=== PATIENT | male | born 1965 | race Caucasian/White ===

== ENCOUNTER 2017-07-25 15:50 | Emergency (ER) | payer MEDICARE, OTHER ==
[~2017-07-25] VITALS: Ht 177.8 cm; Wt 147.4 kg
[~2017-07-25 15:50] MED LIST: ACETAMINOPHEN325 M1 PO; ACID CONTROLLER20 MG PO; ADULT LOW DOSE81 MG PO; AMBIEN10 MG; AMITIZA8 MCG PO; CARAFATE1 GM PO; CLARITIN10 M2 PO; CORRECTOL5 MG PO; FEOSOL325 MG PO; FIBER TABS625 MG PO; FLUVOXAMINE MA100 M1 PO; FLUVOXAMINE MA100 MG PO; GABAPENTIN300 MG; GABAPENTIN400 MG PO; GLUCOTROL5 MG PO; HYDROCHLOROTHIA50 MG PO; L-METHYLFOLATE15 MG PO; LAMICTAL200 MG PO; LAMOTRIGINE200 MG PO; LATUDA60 MG PO; LISINOPRIL40 MG PO; METFORMIN HCL500 M2 PO; NAPROXEN250 MG PO; NORCO 5-325 TA1 EACH PO; OMEPRAZOLE20 MG PO; POTASSIUM CHLO10 ME1 PO; POTASSIUM CHLO20 ME1; PROTONIX40 MG PO; SIMVASTATIN20 MG; SIMVASTATIN40 MG PO; TELMISARTAN-HC1 EACH; ZOLPIDEM TARTRA10 MG PO
--- OUTSIDE RECORDS SUMMARY | 2017-07-25 16:15 | XMS ---
Demographics + + + | Address | [address] | | | [place] [address] | + + + | Preferred Language | Unknown | + + + | Marital Status | Unknown | + + + | Jain Affiliation | Unknown | + + + | Race | Unknown | + + + | Ethnic Group | Unknown | + + + Author + + + | Author | [facility] | + + + | Organization | [facility] | + + + | Address | [address] | | | [place] [address] | + + + | Phone | | + + + Care Team Providers + + + + | Care Forest Landscape Ecology Professor Name | Role | Phone | + + + + Unavailable | Unavailable | + + + + PROBLEMS +---------+ + + +--------+ + + | Type | Condition | ICD9-CM | [id number] | Onset | Condition | SNOMED | | | | Code | Code | Dates | Status | Code | +---------+ + + +--------+ + + | Problem | Diffuse | M48.10 | | | Active | [id number] | | | idiopathic | | | | | | | | skeletal | | | | | | | | hyperostos | | | | | | | | is | | | | | | +---------+ + + +--------+ + + | Problem | Ankylosing | M45.9 | | | Active | 3981447 | | | | | | | | | | | spondyliti | | | | | | | | s | | | | | | +---------+ + + +--------+ + + | Problem | Unspecifie | | S83.206A | | Active | | | | d tear of | | | | | | | | unspecifie | | | | | | | | d | | | | | | | | meniscus, | | | | | | | | current | | | | | | | | injury, | | | | | | | | right | | | | | | | | knee, | | | | | | | | initial | | | | | | | | encounter | | | | | | +---------+ + + +--------+ + + | Problem | Moderate | | F71 | | Active | 14765876 | | | intellectu | | | | | | | | al | | | | | | | | disabiliti | | | | | | | | es | | | | | | +---------+ + + +--------+ + + | Problem | Morbid | | E66.01 | | Active | 441483632 | | | obesity | | | | | | | | with BMI | | | | | | | | of | | | | | | | | 45.0-49.9, | | | | | | | | adult | | | | | | +---------+ + + +--------+ + + | Problem | Irritable | | K58.1 | | Active | | | | bowel | | | | | | | | syndrome | | | | | | | | with | | | | | | | | constipati | | | | | | | | on | | | | | | +---------+ + + +--------+ + + | Problem | Congestive | I50.9 | | | Active | 30978463 | | | heart | | | | | | | | failure | | | | | | +---------+ + + +--------+ + + | Problem | Bone spur | M77.51 | | | Active | 041837257 | | | of right | | | | | | | | ankle | | | | | | +---------+ + + +--------+ + + | Problem | Decreased | H91.90 | | | Active | 258693896 | | | hearing | | | | | | +---------+ + + +--------+ + + | Problem | Cellulitis | L03.115 | | | Active | 3062357701 | | | of right | | | | | 4856773 | | | foot | | | | | | +---------+ + + +--------+ + + | Problem | Urge | | N39.41 | | Active | 09917451 | | | incontinen | | | | | | | | ce | | | | | | +---------+ + + +--------+ + + | Problem | Elevated | R74.8 | | | Active | 193938482 | | | alkaline | | | | | | | | phosphatas | | | | | | | | e level | | | | | | +---------+ + + +--------+ + + | Problem | Hyperlipid | | E78.5 | | Active | 48423864 | | | emia | | | | | | +---------+ + + +--------+ + + | Problem | Essential | | I10 | | Active | 75062064 | | | (primary) | | | | | | | | hypertensi | | | | | | | | on | | | | | | +---------+ + + +--------+ + + | Problem | GERD | | K21.9 | | Active | 085418546 | | | (gastroeso | | | | | | | | phageal | | | | | | | | reflux | | | | | | | | disease) | | | | | | +---------+ + + +--------+ + + | Problem | Screening | Z12.5 | | | Active | 330564005 | | | for | | | | | | | | prostate | | | | | | | | cancer | | | | | | +---------+ + + +--------+ + + | Problem | Status | Z93.0 | | | Active | 341023841 | | | post | | | | | | | | emergency | | | | | | | | tracheotom | | | | | | | | y for | | | | | | | | assistance | | | | | | | | in | | | | | | | | breathing | | | | | | +---------+ + + +--------+ + + | Problem | HTN | | I10 | | Active | 13413723 | | | (hypertens | | | | | | | | ion) | | | | | | +---------+ + + +--------+ + + | Problem | Chronic | | N18.3 | | Active | 156891837 | | | kidney | | | | | | | | disease, | | | | | | | | stage 3 | | | | | | +---------+ + + +--------+ + + | Problem | Obstructiv | G47.33 | | | Active | 03512369 | | | e sleep | | | | | | | | apnea | | | | | | +---------+ + + +--------+ + + | Problem | Microalbum | R80.9 | | | Active | 650038312 | | | inuria | | | | | | +---------+ + + +--------+ + + | Problem | Bipolar | F31.9 | | | Active | 92328501 | | | disorder | | | | | | +---------+ + + +--------+ + + | Problem | Type 2 | E11.9 | | | Active | 30715646 | | | diabetes | | | | | | | | mellitus | | | | | | +---------+ + + +--------+ + + | Problem | Anxiety | F41.9 | | | Active | 447586444 | | | disorder | | | | | | +---------+ + + +--------+ + + | Problem | Conduct | | F91.9 | | Active | 290170827 | | | disorder, | | | | | | | | unspecifie | | | | | | | | d | | | | | | +---------+ + + +--------+ + + | Problem | Anemia, | D50.9 | | | Active | 11392233 | | | iron | | | | | | | | deficiency | | | | | | +---------+ + + +--------+ + + | Problem | Psychotic | | F06.2 | | Active | | | | disorder | | | | | | | | with | | | | | | | | delusions | | | | | | | | due to | | | | | | | | known | | | | | | | | physiologi | | | | | | | | spike | | | | | | | | condition | | | | | | +---------+ + + +--------+ + + ALLERGIES Unknown Allergies SOCIAL HISTORY No smoking Hx information available PLAN OF CARE + +---------+ | Activity | Details | + +---------+ +---+ | | +---+ + + + | Follow Up | 4 Weeks Reason:null | + + + VITAL SIGNS MEDICATIONS + + + + + + + +--------+ | Medicati | Instruct | Dosage | Frequenc | Start | End Date | Duration | Status | | on | ions | | y | Date | | | | + + + + + + + +--------+ | Lisinopr | Orally | 1 tablet | 24h | | | | Active | | il 40 MG | Once a | | | | | | | | | day | | | | | | | + + + + + + + +--------+ | Simvasta | Orally | 1 tablet | 24h | | | | Active | | tin 40 | Once a | in the | | | | | | | MG | day | evening | | | | | | + + + + + + + +--------+ | Ditropan | Orally | 1 tablet | 24h | 20 May, | 17 Nov, | 30 | Active | | XL 5 MG | Once a | | | 2017 | 2017 | day(s) | | | | day | | | | | | | + + + + + + + +--------+ | Famotidi | Orally | 1 tablet | 24h | 21 Sep, | | | Active | | ne 20 mg | Once a | at | | 2015 | | | | | | day | bedtime | | | | | | + + + + + + + +--------+ | Tamsulos | p.o. | take one | 24h | | 8 Feb, | 30 days | Active | | in HCl | Once a | capsule | | | 2017 | | | | 0.4 MG | day | by | | | | | | | | | mouth | | | | | | | | | every | | | | | | | | | day | | | | | | + + + + + + + +--------+ | acetamet | orally | 2 | | | | | Active | | aphine | prn | tablets | | | | | | | 325 mg | | | | | | | | + + + + + + + +--------+ | Hydrochl | Orally | 1 tablet | 24h | | | | Active | | orothiaz | Once a | | | | | | | | jeff 50 | day | | | | | | | | mg | | | | | | | | + + + + + + + +--------+ | Flomax | Orally | 2 | | 03 Jun, | 30 Nov, | 30 | Active | | 0.4 MG | Once a | capsules | | 2016 | 2018 | day(s) | | | | day at | | | | | | | | | bedtime | | | | | | | + + + + + + + +--------+ | Norvasc | Orally | 1 tablet | 24h | 13 Kushal, | | 30 | Active | | 5 MG | Once a | | | 2017 | | day(s) | | | | day | | | | | | | + + + + + + + +--------+ | Loratadi | Orally | 1 tablet | | | | | Active | | ne 10 mg | Once a | | | | | | | | | day as | | | | | | | | | needed | | | | | | | | | for | | | | | | | | | allergie | | | | | | | | | s | | | | | | | + + + + + + + +--------+ | Systane | Ophthalm | 1 drop | | | | | Active | | 0.4-0.3 | ic 6 | into | | | | | | | % | times a | affected | | | | | | | | day as | eye | | | | | | | | needed | | | | | | | | | for dry | | | | | | | | | eyes | | | | | | | + + + + + + + +--------+ | Latuda | Orally | 1 tablet | 24h | | | | Active | | 60 MG | Once a | with | | | | | | | | day | food | | | | | | + + + + + + + +--------+ | Aspirin | Orally | 1 tablet | 24h | | | | Active | | 81 MG | Once a | | | | | | | | | day | | | | | | | + + + + + + + +--------+ | Nasonex | Nasally | 2 sprays | 24h | 27 March, | | 30 | Active | | 50 | Once a | in each | | 2017 | | day(s) | | | MCG/ACT | day | nostril | | | | | | + + + + + + + +--------+ | Meloxica | Orally | 1 tablet | 24h | | | | Active | | m 15 MG | Once a | | | | | | | | | day | | | | | | | + + + + + + + +--------+ | Miralax | orally | 1 packet | | 25 Patrick, | | | Active | | (polyeth | Once a | mixed 8 | | 2016 | | | | | ylene | day - | oz of | | | | | | | glycol | For | water or | | | | | | | 3350) | Constipa | juice | | | | | | | 17gram | tion | | | | | | | + + + + + + + +--------+ | Lamotrig | Orally | 1 tablet | 12h | | | | Active | | ine 200 | Twice a | | | | | | | | MG | day | | | | | | | + + + + + + + +--------+ | Glucotro | Orally | 1 tablet | 24h | | | | Active | | l 5 MG | Once a | | | | | | | | | day | | | | | | | + + + + + + + +--------+ | OneTouch | in vitro | as | 12h | 23 Dec, | | 30 | Active | | Delica | bid | directed | | 2014 | | day(s) | | | Lancing | | | | | | | | | Dev 10 | | | | | | | | | mg | | | | | | | | + + + + + + + +--------+ | Potassiu | Orally | 2 tablet | 12h | | | | Active | | m | Twice a | | | | | | | | Chloride | day | | | | | | | | ER 10 | | | | | | | | | MEQ | | | | | | | | + + + + + + + +--------+ | Fiber | Orally | 1 tablet | | | | | Active | | Laxative | Once a | | | | | | | | 625 MG | day as | | | | | | | | | needed | | | | | | | | | for | | | | | | | | | constipa | | | | | | | | | tion | | | | | | | + + + + + + + +--------+ | MetFORMI | Orally | 2 tablet | 24h | | | 30 | Active | | N HCl ER | Once a | with | | | | day(s) | | | 500 mg | day | evening | | | | | | | | | meal | | | | | | + + + + + + + +--------+ | One | In Vitro | as | 12h | 23 Dec, | | 30 | Active | | Touch/On | bid | directed | | 2014 | | day(s) | | | e Touch | | | | | | | | | II | | | | | | | | | Starter | | | | | | | | | 10 mg | | | | | | | | + + + + + + + +--------+ | Zolpidem | Orally | 1 tablet | | | | | Active | | | Once a | | | | | | | | Tartrate | day at | | | | | | | | 5 MG | bedtime | | | | | | | | | as | | | | | | | | | needed | | | | | | | | | for | | | | | | | | | sleeples | | | | | | | | | sness | | | | | | | + + + + + + + +--------+ | Fluvoxam | Orally | 3 tablet | 24h | | | | Active | | ine | Once a | in | | | | | | | Maleate | day | morning | | | | | | | 100 MG | | | | | | | | + + + + + + + +--------+ | Ferrous | Orally | 1 tablet | 24h | Jun, | | | Active | | Sulfate | Once a | | | 2015 | | | | | 325 (65 | day | | | | | | | | Fe) MG | | | | | | | | + + + + + + + +--------+ RESULTS No Results PROCEDURES + + + + + | Procedure | Date Ordered | Related Diagnosis | Body Site | + + + + + | CYSTOSCOPY | Jun 28, 2017 | | | + + + + + IMMUNIZATIONS No Known Immunizations"
--- OUTSIDE RECORDS SUMMARY | 2017-07-25 16:15 | XMS ---
Demographics + + + | Address | [address] | | | [place] [address] | + + + | Preferred Language | Unknown | + + + | Marital Status | Unknown | + + + | Jewish Affiliation | Unknown | + + + | Race | Unknown | + + + | Ethnic Group | Unknown | + + + Author + + + | Author | [facility] | + + + | Organization | [facility] | + + + | Address | [address] | | | [place] [address] | + + + | Phone | | + + + Care Team Providers + + + + | Care Volleyball Referee Name | Role | Phone | + + + + Unavailable | Unavailable | + + + + PROBLEMS +---------+ + + +--------+ + + | Type | Condition | ICD9-CM | [id number] | Onset | Condition | SNOMED | | | | Code | Code | Dates | Status | Code | +---------+ + + +--------+ + + | Problem | Diffuse | M48.10 | | | Active | 94359943 | | | idiopathic | | | | | | | | skeletal | | | | | | | | hyperostos | | | | | | | | is | | | | | | +---------+ + + +--------+ + + | Problem | Ankylosing | M45.9 | | | Active | 4525916 | | | | | | | [...] | | F71 | | Active | 52203508 | | | intellectu | | | | | | | | al | | | | | | | | disabiliti | | | | | | | | es | | | | | | +---------+ + + +--------+ + + | Problem | Morbid | | E66.01 | | Active | 614528108 | | | obesity | | | [...] | I50.9 | | | Active | 20148975 | | | heart | | | | | | | | failure | | | | | | +---------+ + + +--------+ + + | Problem | Bone spur | M77.51 | | | Active | 497396451 | | | of right | | | | | | | | ankle | | | | | | +---------+ + + +--------+ + + | Problem | Decreased | H91.90 | | | Active | 856151423 | | | hearing | | | | | | +---------+ + + +--------+ + + | Problem | Cellulitis | L03.115 | | | Active | 6768878279 | | | of right | | | | | 6884992 | | | foot | | | | | | +---------+ + + +--------+ + + | Problem | Urge | | N39.41 | | Active | 56397055 | | | incontinen | | | | | | | | ce | | | | | | +---------+ + + +--------+ + + | Problem | Elevated | R74.8 | | | Active | 338271984 | | | alkaline | | | | | | | | phosphatas | | | | | | | | e level | | | | | | +---------+ + + +--------+ + + | Problem | Hyperlipid | | E78.5 | | Active | 62947385 | | | emia | | | | | | +---------+ + + +--------+ + + | Problem | Essential | | I10 | | Active | 28330907 | | | (primary) | | | | | | | | hypertensi | | | | | | | | on | | | | | | +---------+ + + +--------+ + + | Problem | GERD | | K21.9 | | Active | 626229175 | | | (gastroeso | | | | | | | | phageal | | | | | | | | reflux | | | | | | | | disease) | | | | | | +---------+ + + +--------+ + + | Problem | Screening | Z12.5 | | | Active | 844420358 | | | for | | | | | | | | prostate | | | | | | | | cancer | | | | | | +---------+ + + +--------+ + + | Problem | Status | Z93.0 | | | Active | 401786498 | | | post | | | [...] | | I10 | | Active | 09333905 | | | (hypertens | | | | | | | | ion) | | | | | | +---------+ + + +--------+ + + | Problem | Chronic | | N18.3 | | Active | 779953308 | | | kidney | | | | | | | | disease, | | | | | | | | stage 3 | | | | | | +---------+ + + +--------+ + + | Problem | Obstructiv | G47.33 | | | Active | 01985400 | | | e sleep | | | | | | | | apnea | | | | | | +---------+ + + +--------+ + + | Problem | Microalbum | R80.9 | | | Active | 203926765 | | | inuria | | | | | | +---------+ + + +--------+ + + | Problem | Bipolar | F31.9 | | | Active | 41729897 | | | disorder | | | | | | +---------+ + + +--------+ + + | Problem | Type 2 | E11.9 | | | Active | 89394002 | | | diabetes | | | | | | | | mellitus | | | | | | +---------+ + + +--------+ + + | Problem | Anxiety | F41.9 | | | Active | 180839696 | | | disorder | | | | | | +---------+ + + +--------+ + + | Problem | Conduct | | F91.9 | | Active | 853861151 | | | disorder, | | | | | | | | unspecifie | | | | | | | | d | | | | | | +---------+ + + +--------+ + + | Problem | Anemia, | D50.9 | | | Active | 22352911 | | | iron | | | [...] +---------+ + + +--------+ + + ALLERGIES + + + + +---------+ | Substance | Reaction | Event Type | Date | Status | + + + + +---------+ | N.K.D.A. | Unknown | Non Drug | 20 May, 2017 | Unknown | | | | Allergy | | | + + + + +---------+ SOCIAL HISTORY No smoking Hx information available PLAN OF CARE + +---------+ | Activity | Details | + +---------+ +---+ | | +---+ + + + | Follow Up | 1 Week Reason:null | + + + | Pending Test | Urinalysis, Dip (IH) | + + + | Future/Pending Procedure | Bladder Scan | + + + VITAL SIGNS + + + + | Height | 70 in | 2017-06-14 | + + + + | Weight | 328.0 lbs | 2017-06-14 | + + + + | BMI | 47.06 kg/m2 | 2017-06-14 | + + + + | Temperature | 98.6 degrees Fahrenheit | 2017-06-14 | + + + + | Heart Rate | 75 /min | 2017-06-14 | + + + + | Blood pressure systolic | 133 mm Hg | 2017-06-14 | + + + + | Blood pressure diastolic | 72 mm Hg | 2017-06-14 | + + + + MEDICATIONS + + + + + + [...] Sulfate | Once a | | | 2016 | | | | | 325 (65 [...] Nasally | 2 sprays | 24h | 02 March, | | 30 | Active | [...] | 1 tablet | 24h | 13 May, | | 30 | Active | | 5 MG | Once a | | | 2016 | | day(s) | | | | [...] orally | 1 packet | | 25 Nov, | | | Active | | (polyeth [...] Delica | bid | directed | | 2013 | | day(s) | | | Lancing [...] Touch/On | bid | directed | | 2013 | | day(s) | | | e [...] Once a | capsule | | | 2018 | | | | 0.4 MG | [...] | 1 tablet | 24h | 20 Kushal, | 17 Nov, | 30 | Active [...] | 1 tablet | 24h | 21 Nov, | | | Active | | ne 20 mg | Once a | at | | 2016 | | | | | | day | bedtime | | | | | | + + + + + + + +--------+ RESULTS No Results PROCEDURES + + + + + | Procedure | Date Ordered | Related Diagnosis | Body Site | + + + + + | US URINE CAPACITY | June 14, 2017 | | | | MEASURE | | | | + + + + + | LAB URINALYSIS (DIP | June 14, 2017 | | | | STICK ONLY | | | | + + + + + | Office Visit, Est | June 14, 2017 | | | | Pt., Level 4 | | | | + + + + + IMMUNIZATIONS No Known Immunizations"
--- OUTSIDE RECORDS SUMMARY | 2017-07-25 16:15 | XMS ---
Demographics + + + | Address | [address] | | | [place] [address] | + + + | Preferred Language | Unknown | + + + | Marital Status | Unknown | + + + | Anglican Affiliation | Unknown | + + + | Race | Unknown | + + + | Ethnic Group | Unknown | + + + Author + + + | Author | [facility] | + + + | Organization | [facility] | + + + | Address | [address] | | | [place] [address] | + + + | Phone | | + + + Care Team Providers + + + + | Care Educational Technologist Name | Role | Phone | + + + + Unavailable | Unavailable | + + + + PROBLEMS +---------+ + + +--------+ + + | Type | Condition | ICD9-CM | [id number] | Onset | Condition | SNOMED | | | | Code | Code | Dates | Status | Code | +---------+ + + +--------+ + + | Problem | Diffuse | M48.10 | | | Active | [id number] | | | idiopathic | | | | | | | | skeletal | | | | | | | | hyperostos | | | | | | | | is | | | | | | +---------+ + + +--------+ + + | Problem | Ankylosing | M45.9 | | | Active | 1614658 | | | | | | | [...] | | F71 | | Active | 94469958 | | | intellectu | | | | | | | | al | | | | | | | | disabiliti | | | | | | | | es | | | | | | +---------+ + + +--------+ + + | Problem | Morbid | | E66.01 | | Active | 112418330 | | | obesity | | | [...] | | K58.1 | | Active | 649036969 | | | bowel | | | | | | | | syndrome | | | | | | | | with | | | | | | | | constipati | | | | | | | | on | | | | | | +---------+ + + +--------+ + + | Problem | Congestive | I50.9 | | | Active | 06778304 | | | heart | | | | | | | | failure | | | | | | +---------+ + + +--------+ + + | Problem | Bone spur | M77.51 | | | Active | 529214245 | | | of right | | | | | | | | ankle | | | | | | +---------+ + + +--------+ + + | Problem | Decreased | H91.90 | | | Active | 690466951 | | | hearing | | | | | | +---------+ + + +--------+ + + | Problem | Cellulitis | L03.115 | | | Active | 4423075219 | | | of right | | | | | 3054949 | | | foot | | | | | | +---------+ + + +--------+ + + | Problem | Urge | | N39.41 | | Active | 47340177 | | | incontinen | | | | | | | | ce | | | | | | +---------+ + + +--------+ + + | Problem | Elevated | R74.8 | | | Active | 383097939 | | | alkaline | | | | | | | | phosphatas | | | | | | | | e level | | | | | | +---------+ + + +--------+ + + | Problem | Hyperlipid | | E78.5 | | Active | 53508218 | | | emia | | | | | | +---------+ + + +--------+ + + | Problem | Essential | | I10 | | Active | 93662634 | | | (primary) | | | | | | | | hypertensi | | | | | | | | on | | | | | | +---------+ + + +--------+ + + | Problem | GERD | | K21.9 | | Active | 739398272 | | | (gastroeso | | | | | | | | phageal | | | | | | | | reflux | | | | | | | | disease) | | | | | | +---------+ + + +--------+ + + | Problem | Screening | Z12.5 | | | Active | 748382669 | | | for | | | | | | | | prostate | | | | | | | | cancer | | | | | | +---------+ + + +--------+ + + | Problem | Status | Z93.0 | | | Active | 585186622 | | | post | | | [...] | | I10 | | Active | 03439284 | | | (hypertens | | | | | | | | ion) | | | | | | +---------+ + + +--------+ + + | Problem | Chronic | | N18.3 | | Active | 011993979 | | | kidney | | | | | | | | disease, | | | | | | | | stage 3 | | | | | | +---------+ + + +--------+ + + | Problem | Obstructiv | G47.33 | | | Active | 43932473 | | | e sleep | | | | | | | | apnea | | | | | | +---------+ + + +--------+ + + | Problem | Microalbum | R80.9 | | | Active | 085984063 | | | inuria | | | | | | +---------+ + + +--------+ + + | Problem | Bipolar | F31.9 | | | Active | 92904626 | | | disorder | | | | | | +---------+ + + +--------+ + + | Problem | Type 2 | E11.9 | | | Active | 43195060 | | | diabetes | | | | | | | | mellitus | | | | | | +---------+ + + +--------+ + + | Problem | Anxiety | F41.9 | | | Active | 878741352 | | | disorder | | | | | | +---------+ + + +--------+ + + | Problem | Conduct | | F91.9 | | Active | 839048780 | | | disorder, | | | | | | | | unspecifie | | | | | | | | d | | | | | | +---------+ + + +--------+ + + | Problem | Anemia, | D50.9 | | | Active | 79470311 | | | iron | | | [...] smoking Hx information available PLAN OF CARE VITAL SIGNS MEDICATIONS Unknown Medications RESULTS No Results PROCEDURES No Known procedures IMMUNIZATIONS No Known Immunizations"
--- OUTSIDE RECORDS SUMMARY | 2017-07-25 16:15 | XMS ---
Demographics + + + | Address | [address] | | | [place] [address] | + + + | Preferred Language | Unknown | + + + | Marital Status | Unknown | + + + | Rastafarian Affiliation | Unknown | + + + | Race | Unknown | + + + | Ethnic Group | Unknown | + + + Author + + + | Author | [facility] | + + + | Organization | [facility] | + + + | Address | [address] | | | [place] [address] | + + + | Phone | | + + + Care Team Providers + + + + | Care Investigations Chief Name | Role | Phone | + + + + Unavailable | Unavailable | + + + + PROBLEMS +---------+ + + +--------+ + + | Type | Condition | ICD9-CM | [id number] | Onset | Condition | SNOMED | | | | Code | Code | Dates | Status | Code | +---------+ + + +--------+ + + | Problem | Diffuse | M48.10 | | | Active | [id number] | | | idiopathic | | | | | | | | skeletal | | | | | | | | hyperostos | | | | | | | | is | | | | | | +---------+ + + +--------+ + + | Problem | Ankylosing | M45.9 | | | Active | 2389987 | | | | | | | [...] | | F71 | | Active | 33479904 | | | intellectu | | | | | | | | al | | | | | | | | disabiliti | | | | | | | | es | | | | | | +---------+ + + +--------+ + + | Problem | Morbid | | E66.01 | | Active | 224494958 | | | obesity | | | [...] | | K58.1 | | Active | 972101980 | | | bowel | | | | | | | | syndrome | | | | | | | | with | | | | | | | | constipati | | | | | | | | on | | | | | | +---------+ + + +--------+ + + | Problem | Congestive | I50.9 | | | Active | 83960016 | | | heart | | | | | | | | failure | | | | | | +---------+ + + +--------+ + + | Problem | Bone spur | M77.51 | | | Active | 292914712 | | | of right | | | | | | | | ankle | | | | | | +---------+ + + +--------+ + + | Problem | Decreased | H91.90 | | | Active | 059153014 | | | hearing | | | | | | +---------+ + + +--------+ + + | Problem | Cellulitis | L03.115 | | | Active | 5330479218 | | | of right | | | | | 1843211 | | | foot | | | | | | +---------+ + + +--------+ + + | Problem | Urge | | N39.41 | | Active | 24961150 | | | incontinen | | | | | | | | ce | | | | | | +---------+ + + +--------+ + + | Problem | Elevated | R74.8 | | | Active | 208449118 | | | alkaline | | | | | | | | phosphatas | | | | | | | | e level | | | | | | +---------+ + + +--------+ + + | Problem | Hyperlipid | | E78.5 | | Active | 67090803 | | | emia | | | | | | +---------+ + + +--------+ + + | Problem | Essential | | I10 | | Active | 25703850 | | | (primary) | | | | | | | | hypertensi | | | | | | | | on | | | | | | +---------+ + + +--------+ + + | Problem | GERD | | K21.9 | | Active | 843536442 | | | (gastroeso | | | | | | | | phageal | | | | | | | | reflux | | | | | | | | disease) | | | | | | +---------+ + + +--------+ + + | Problem | Screening | Z12.5 | | | Active | 632370745 | | | for | | | | | | | | prostate | | | | | | | | cancer | | | | | | +---------+ + + +--------+ + + | Problem | Status | Z93.0 | | | Active | 697555919 | | | post | | | [...] | | I10 | | Active | 01190542 | | | (hypertens | | | | | | | | ion) | | | | | | +---------+ + + +--------+ + + | Problem | Chronic | | N18.3 | | Active | 837802642 | | | kidney | | | | | | | | disease, | | | | | | | | stage 3 | | | | | | +---------+ + + +--------+ + + | Problem | Obstructiv | G47.33 | | | Active | 82141287 | | | e sleep | | | | | | | | apnea | | | | | | +---------+ + + +--------+ + + | Problem | Microalbum | R80.9 | | | Active | 657237836 | | | inuria | | | | | | +---------+ + + +--------+ + + | Problem | Bipolar | F31.9 | | | Active | 78111613 | | | disorder | | | | | | +---------+ + + +--------+ + + | Problem | Type 2 | E11.9 | | | Active | 85068937 | | | diabetes | | | | | | | | mellitus | | | | | | +---------+ + + +--------+ + + | Problem | Anxiety | F41.9 | | | Active | 602364884 | | | disorder | | | | | | +---------+ + + +--------+ + + | Problem | Conduct | | F91.9 | | Active | 979014664 | | | disorder, | | | | | | | | unspecifie | | | | | | | | d | | | | | | +---------+ + + +--------+ + + | Problem | Anemia, | D50.9 | | | Active | 84928612 | | | iron | | | [...] take one | 24h | | 8 Fe, | 30 days | Active | | [...] | orally | 1 packet | | Nov, | | | Active | | (polyeth | Once a | mixed 8 | | 2017 | | | | | ylene | [...]
--- OUTSIDE RECORDS SUMMARY | 2017-07-25 16:15 | XMS ---
Demographics + + + | Address | [address] | | | [place] [address] | + + + | Preferred Language | Unknown | + + + | Marital Status | Unknown | + + + | Pentecostal Affiliation | Unknown | + + + | Race | Unknown | + + + | Ethnic Group | Unknown | + + + Author + + + | Author | [facility] | + + + | Organization | [facility] | + + + | Address | [address] | | | [place] [address] | + + + | Phone | | + + + Care Team Providers + + + + | Care Manager Data Warehousing Name | Role | Phone | + + + + Unavailable | Unavailable | + + + + PROBLEMS +---------+ + + +--------+ + + | Type | Condition | ICD9-CM | [id number] | Onset | Condition | SNOMED | | | | Code | Code | Dates | Status | Code | +---------+ + + +--------+ + + | Problem | Diffuse | M48.10 | | | Active | 93228363 | | | idiopathic | | | | | | | | skeletal | | | | | | | | hyperostos | | | | | | | | is | | | | | | +---------+ + + +--------+ + + | Problem | Ankylosing | M45.9 | | | Active | 3649740 | | | | | | | [...] | | F71 | | Active | 61424408 | | | intellectu | | | | | | | | al | | | | | | | | disabiliti | | | | | | | | es | | | | | | +---------+ + + +--------+ + + | Problem | Morbid | | E66.01 | | Active | 241136235 | | | obesity | | | [...] | I50.9 | | | Active | 77296149 | | | heart | | | | | | | | failure | | | | | | +---------+ + + +--------+ + + | Problem | Bone spur | M77.51 | | | Active | 870861859 | | | of right | | | | | | | | ankle | | | | | | +---------+ + + +--------+ + + | Problem | Decreased | H91.90 | | | Active | 244540649 | | | hearing | | | | | | +---------+ + + +--------+ + + | Problem | Cellulitis | L03.115 | | | Active | 4191064941 | | | of right | | | | | 3232791 | | | foot | | | | | | +---------+ + + +--------+ + + | Problem | Urge | | N39.41 | | Active | 02136947 | | | incontinen | | | | | | | | ce | | | | | | +---------+ + + +--------+ + + | Problem | Elevated | R74.8 | | | Active | 750235691 | | | alkaline | | | | | | | | phosphatas | | | | | | | | e level | | | | | | +---------+ + + +--------+ + + | Problem | Hyperlipid | | E78.5 | | Active | 83431557 | | | emia | | | | | | +---------+ + + +--------+ + + | Problem | Essential | | I10 | | Active | 55190064 | | | (primary) | | | | | | | | hypertensi | | | | | | | | on | | | | | | +---------+ + + +--------+ + + | Problem | GERD | | K21.9 | | Active | 958457836 | | | (gastroeso | | | | | | | | phageal | | | | | | | | reflux | | | | | | | | disease) | | | | | | +---------+ + + +--------+ + + | Problem | Screening | Z12.5 | | | Active | 940636717 | | | for | | | | | | | | prostate | | | | | | | | cancer | | | | | | +---------+ + + +--------+ + + | Problem | Status | Z93.0 | | | Active | 751708932 | | | post | | | [...] | | I10 | | Active | 56988383 | | | (hypertens | | | | | | | | ion) | | | | | | +---------+ + + +--------+ + + | Problem | Chronic | | N18.3 | | Active | 050477409 | | | kidney | | | | | | | | disease, | | | | | | | | stage 3 | | | | | | +---------+ + + +--------+ + + | Problem | Obstructiv | G47.33 | | | Active | 97923232 | | | e sleep | | | | | | | | apnea | | | | | | +---------+ + + +--------+ + + | Problem | Microalbum | R80.9 | | | Active | 868736125 | | | inuria | | | | | | +---------+ + + +--------+ + + | Problem | Bipolar | F31.9 | | | Active | 35795377 | | | disorder | | | | | | +---------+ + + +--------+ + + | Problem | Type 2 | E11.9 | | | Active | 24955330 | | | diabetes | | | | | | | | mellitus | | | | | | +---------+ + + +--------+ + + | Problem | Anxiety | F41.9 | | | Active | 689852339 | | | disorder | | | | | | +---------+ + + +--------+ + + | Problem | Conduct | | F91.9 | | Active | 838605614 | | | disorder, | | | | | | | | unspecifie | | | | | | | | d | | | | | | +---------+ + + +--------+ + + | Problem | Anemia, | D50.9 | | | Active | 83159469 | | | iron | | | [...]
[2017-07-25] MEDS ORDERED: NAPROSYN500 MG PO (17:57)
== END 2017-07-25 18:11 | disposition home or self-care (01) ==
LOC: ED 15:50
DX: M45.0 Ankylosing spondylitis of multiple sites in spine (principal); F31.9 Bipolar disorder, unspecified; Z79.899 Other long term (current) drug therapy; Z79.82 Long term (current) use of aspirin
CPT/HCPCS: 71020; 72070; 96374; 99283; J1885

== ENCOUNTER 2018-02-01 22:09 | Emergency (ER) | payer MEDICARE, OTHER ==
[~2018-02-01] VITALS: Ht 177.8 cm; Wt 147.4 kg
--- OUTSIDE RECORDS SUMMARY | ~2018-02-01 | XMS ---
Demographics + + + | Address | [address] | | | [place] [address] | + + + | Preferred Language | Unknown | + + + | Marital Status | Unknown | + + + | Church Affiliation | Unknown | + + + | Race | Unknown | + + + | Ethnic Group | Unknown | + + + Author + + + | Author | [facility] | + + + | Organization | [facility] | + + + | Address | [address] | | | [place] [address] | + + + | Phone | | + + + Care Team Providers + + + + | Care Senior Systems Software Engineer Name | Role | Phone | + + + + Unavailable | Unavailable | + + + + PROBLEMS +---------+ + + +--------+ + + | Type | Condition | ICD9-CM | [id number] | Onset | Condition | SNOMED | | | | Code | Code | Dates | Status | Code | +---------+ + + +--------+ + + | Problem | Sleep | G47.30 | | | Active | 71213434 | | | apnea | | | | | | +---------+ + + +--------+ + + | 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 | | | Active | 23495233 | | | s without | | | | | | | | myelopathy | | | | | | | | or | | | | | | | | radiculopa | | | | | | | | thy | | | | | | +---------+ + + +--------+ + + | Problem | Diffuse | M48.10 | | | Active | 61486372 | | | idiopathic | | | [...] | | F71 | | Active | 25901837 | | | intellectu | | | | | | | | al | | | | | | | | disabiliti | | | | | | | | es | | | | | | +---------+ + + +--------+ + + | Problem | Morbid | | E66.01 | | Active | 304565455 | | | obesity | | | [...] | | K58.1 | | Active | 336945004 | | | bowel | | | | | | | | syndrome | | | | | | | | with | | | | | | | | constipati | | | | | | | | on | | | | | | +---------+ + + +--------+ + + | Problem | Congestive | I50.9 | | | Active | 29974525 | | | heart | | | | | | | | failure | | | | | | +---------+ + + +--------+ + + | Problem | Bone spur | M77.51 | | | Active | 554708307 | | | of right | | | | | | | | ankle | | | | | | +---------+ + + +--------+ + + | Problem | Decreased | H91.90 | | | Active | 322519044 | | | hearing | | | | | | +---------+ + + +--------+ + + | Problem | Cellulitis | L03.115 | | | Active | 9902025002 | | | of right | | | | | 1025705 | | | foot | | | | | | +---------+ + + +--------+ + + | Problem | Urge | | N39.41 | | Active | 65758062 | | | incontinen | | | | | | | | ce | | | | | | +---------+ + + +--------+ + + | Problem | Elevated | R74.8 | | | Active | 866141370 | | | alkaline | | | | | | | | phosphatas | | | | | | | | e level | | | | | | +---------+ + + +--------+ + + | Problem | Hyperlipid | | E78.5 | | Active | 25542181 | | | emia | | | | | | +---------+ + + +--------+ + + | Problem | Essential | | I10 | | Active | 14143908 | | | (primary) | | | | | | | | hypertensi | | | | | | | | on | | | | | | +---------+ + + +--------+ + + | Problem | GERD | | K21.9 | | Active | 368223473 | | | (gastroeso | | | | | | | | phageal | | | | | | | | reflux | | | | | | | | disease) | | | | | | +---------+ + + +--------+ + + | Problem | Screening | Z12.5 | | | Active | 656294828 | | | for | | | | | | | | prostate | | | | | | | | cancer | | | | | | +---------+ + + +--------+ + + | Problem | Status | Z93.0 | | | Active | 109735186 | | | post | | | [...] | | I10 | | Active | 64052116 | | | (hypertens | | | | | | | | ion) | | | | | | +---------+ + + +--------+ + + | Problem | Chronic | | N18.3 | | Active | 324093736 | | | kidney | | | | | | | | disease, | | | | | | | | stage 3 | | | | | | +---------+ + + +--------+ + + | Problem | Obstructiv | G47.33 | | | Active | 36259971 | | | e sleep | | | | | | | | apnea | | | | | | +---------+ + + +--------+ + + | Problem | Microalbum | R80.9 | | | Active | 060002661 | | | inuria | | | | | | +---------+ + + +--------+ + + | Problem | Bipolar | F31.9 | | | Active | 51852089 | | | disorder | | | | | | +---------+ + + +--------+ + + | Problem | Type 2 | E11.9 | | | Active | 25583892 | | | diabetes | | | | | | | | mellitus | | | | | | +---------+ + + +--------+ + + | Problem | Anxiety | F41.9 | | | Active | 261147521 | | | disorder | | | | | | +---------+ + + +--------+ + + | Problem | Conduct | | F91.9 | | Active | 120188911 | | | disorder, | | | | | | | | unspecifie | | | | | | | | d | | | | | | +---------+ + + +--------+ + + | Problem | Anemia, | D50.9 | | | Active | 38621692 | | | iron | | | [...] N.K.D.A. | Unknown | Non Drug | Jul, | Unknown | | | | Allergy | | | + + + + +---------+ SOCIAL HISTORY No smoking Hx information available PLAN OF CARE + +---------+ | Activity | Details | + +---------+ +---+ | | +---+ + + + | Follow Up | 6 Months Reason:null | + + + VITAL SIGNS + + + + | Height | 70 in | 2017-08-02 | + + + + | Weight | 326.4 lbs | 2017-08-02 | + + + + | BMI | 46.83 kg/m2 | 2017-08-02 | + + + + | Temperature | 97.9 degrees Fahrenheit | 2017-08-02 | + + + + | Heart Rate | 91 /min | 2017-08-02 | + + + + | Blood pressure systolic | 150 mm Hg | 2017-08-02 | + + + + | Blood pressure diastolic | 84 mm Hg | 2017-08-02 | + + + + MEDICATIONS + [...] | Once a | capsules | | 2017 | 2018 | day(s) | | | [...] Vitro | as | 12h | 23 Oct, | | 30 | Active | | [...] Orally | 1 tablet | 24h | 08 Jun, | | | Active | | [...] 1 tablet | 24h | | | 30 | Active | | XL 5 MG | Once a | | | | | day(s) | | | | day | | | | | | | + + + + + + + +--------+ | Naproxen | Orally | 1 tablet | 12h | | | | Active | | 500 MG | every 12 | as | | | | | | | | hrs | needed | | | | | | + [...] + + | US URINE CAPACITY | Aug 02, 2017 | | | | MEASURE | | | | + + + + + | Office Visit, Est | Aug 02, 2017 | | | | Pt., Level 2 | | | | + + + + + IMMUNIZATIONS No Known Immunizations"
--- OUTSIDE RECORDS SUMMARY | ~2018-02-01 | XMS ---
Demographics + + + | Address | [address] | | | [place] [address] | + + + | Preferred Language | Unknown | + + + | Marital Status | Unknown | + + + | Yazidi Affiliation | Unknown | + + + | Race | Unknown | + + + | Ethnic Group | Unknown | + + + Author + + + | Author | [facility] | + + + | Organization | [facility] | + + + | Address | [address] | | | [place] [address] | + + + | Phone | | + + + Care Team Providers + + + + | Care Merchandise Planning Manager Name | Role | Phone | + + + + Unavailable | Unavailable | + + + + PROBLEMS +---------+ + + +--------+ + + | Type | Condition | ICD9-CM | [id number] | Onset | Condition | SNOMED | | | | Code | Code | Dates | Status | Code | +---------+ + + +--------+ + + | Problem | Sleep | G47.30 | | | Active | 72449256 | | | apnea | | | | | | +---------+ + + +--------+ + + | 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 | | | Active | 98627279 | | | s without | | [...] | M48.10 | | | Active | 46493423 | | | idiopathic | | | [...] | | E66.01 | | Active | 709809551 | | | obesity | | | [...] | | K58.1 | | Active | 811213109 | | | bowel | | | | | | | | syndrome | | | | | | | | with | | | | | | | | constipati | | | | | | | | on | | | | | | +---------+ + + +--------+ + + | Problem | Congestive | I50.9 | | | Active | 18211202 | | | heart | | | | | | | | failure | | | | | | +---------+ + + +--------+ + + | Problem | Bone spur | M77.51 | | | Active | 088133066 | | | of right | | | | | | | | ankle | | | | | | +---------+ + + +--------+ + + | Problem | GERD | | K21.9 | | Active | 010020628 | | | (gastroeso | | | | | | | | phageal | | | | | | | | reflux | | | | | | | | disease) | | | | | | +---------+ + + +--------+ + + | Problem | Cellulitis | L03.115 | | | Active | 0538154138 | | | of right | | | | | 0275215 | | | foot | | | | | | +---------+ + + +--------+ + + | Problem | Status | Z93.0 | | | Active | 933490111 | | | post | | | [...] | H91.90 | | | Active | 329803523 | | | hearing | | | | | | +---------+ + + +--------+ + + | Problem | Lumbar | M54.5 | | | Active | 364676568 | | | back pain | | | | | | +---------+ + + +--------+ + + | Problem | Urge | | N39.41 | | Active | 01991922 | | | incontinen | | | | | | | | ce | | | | | | +---------+ + + +--------+ + + | Problem | Bipolar | F31.9 | | | Active | 63813646 | | | disorder | | | | | | +---------+ + + +--------+ + + | Problem | Hyperlipid | | E78.5 | | Active | 78486836 | | | emia | | | | | | +---------+ + + +--------+ + + | Problem | Essential | | I10 | | Active | 96650140 | | | (primary) | | | | | | | | hypertensi | | | | | | | | on | | | | | | +---------+ + + +--------+ + + | Problem | Chronic | | N18.3 | | Active | 207197926 | | | kidney | | | | | | | | disease, | | | | | | | | stage 3 | | | | | | +---------+ + + +--------+ + + | Problem | Screening | Z12.5 | | | Active | 529049124 | | | for | | | | | | | | prostate | | | | | | | | cancer | | | | | | +---------+ + + +--------+ + + | Problem | Elevated | R74.8 | | | Active | 337209245 | | | alkaline | | | | | | | | phosphatas | | | | | | | | e level | | | | | | +---------+ + + +--------+ + + | Problem | HTN | | I10 | | Active | 21782210 | | | (hypertens | | | | | | | | ion) | | | | | | +---------+ + + +--------+ + + | Problem | Microalbum | R80.9 | | | Active | 046742239 | | | inuria | | | | | | +---------+ + + +--------+ + + | Problem | Anemia, | D50.9 | | | Active | 08678392 | | | iron | | | | | | | | deficiency | | | | | | +---------+ + + +--------+ + + | Problem | Type 2 | E11.9 | | | Active | 20594943 | | | diabetes | | | | | | | | mellitus | | | | | | +---------+ + + +--------+ + + | Problem | Obstructiv | G47.33 | | | Active | 71658432 | | | e sleep | | | | | | | | apnea | | | | | | +---------+ + + +--------+ + + | Problem | Conduct | | F91.9 | | Active | 578163559 | | | disorder, | | | | | | | | unspecifie | | | | | | | | d | | | | | | +---------+ + + +--------+ + + | Problem | Moderate | | F71 | | Active | 36067660 | | | intellectu | | | [...] | F41.9 | | | Active | 301726289 | | | disorder | | | | | | +---------+ + + +--------+ + + ALLERGIES No Known Allergies SOCIAL HISTORY Never Assessed PLAN OF CARE + +---------+ | Activity | Details | + +---------+ +---+ | | +---+ + + + | Follow Up | [address] Biggs Reason:null | + + + VITAL SIGNS + + + + | Height | 70 in | 2017-08-20 | + + + + | Weight | 320.0 lbs | 2017-08-20 | + + + + | BMI | 45.91 kg/m2 | 2017-08-20 | + + + + | Temperature | 97.4 degrees Fahrenheit | 2017-08-20 | + + + + | Heart Rate | 106 /min | 2017-08-20 | + + + + | Blood pressure systolic | 145 mm Hg | 2017-08-20 | + + + + | Blood pressure diastolic | 83 mm Hg | 2017-08-20 | + + + + MEDICATIONS + [...] + + + + + +--------+ | Baclofen | Orally | 1 tablet | 12h | 25 Sep, | 24 Nov, | 30 | Active | | 5 mg | Two | with | | 2017 | 2017 | day(s) | | | | times a | food or | | | | | | | | day | milk | | | | | | + [...] 2 | | 03 Jun, | 30 Patrick, | 30 | Active | | 0.4 MG | Once a | capsules | | 2017 | 2018 | day(s) | | | | day at | | | | | | | | | bedtime | | | | | | | + + + + + + + +--------+ RESULTS No Results PROCEDURES No Known procedures IMMUNIZATIONS No Known Immunizations MEDICAL (GENERAL) HISTORY + + + + | Type | Description | Date | + + + + | Medical History | Obsessive-compulsive | | | | behavior | | + + + + | Medical History | Obstructive sleep apnea: | | | | Jose Bach, Dr. Marcus, | | | | 04/01/17, 06/13/17, sleep | | | | Dr. Amrit silvestre | | + + + + | Medical History | Personality disorder | | + + + + | Medical History | Type 2 diabetes mellitus | | + + + + | Medical History | Bipolar disorder | | + + + + | Medical History | Hyperlipidemia | | + + + + | Medical History | Essential (primary) | | | | hypertension | | + + + + | Medical History | GERD (gastroesophageal | | | | reflux disease) | | + + + + | Medical History | Irritable bowel syndrome | | + + + + | Medical History | Congestive heart failure | | + + + + | Medical History | Morbid obesity with BMI of | | | | 45.0-49.9, adult | | + + + + | Medical History | T8-T9 discontinuity lesion, | | | | possible small fracture | | | | 08/10/17 | | + + + + | Surgical History | tracheostomy. | | + + + + | Surgical History | Right Knee Surgery | | + + + + | Surgical History | Circumcision for phimosis | 06/2014 | + + + + | Hospitalization History | Phimosis- had circumcision | 06/2014 | + + + + | Hospitalization History | Coronary Angiogram. LVEF | 07/16/2014 | | | 60%. Normal smoothly | | | | contoured coronary | | | | arteries. | | + + + + | Hospitalization History | Holter: HR 52 to 147. Very | 07/16/2014 | | | rare ventricular ectopies | | | | and very rare | | | | supraventricular ectopies. | | | | One 4 beat run of | | | | bradycardia to 49. | | + + + + | Hospitalization History | ECHO: Mild concentric LVH. | 06/2016 | | | LVEF 65-70%. Grade 1 | | | | diastolic abnormality. Mild | | | | LAE, Mild TAINA. Trace MR | | | | and TR. | | + + + + | Hospitalization History | Colonscopy (Dr Lerma) | 07/12/2016 | | | Minimal left sided | | | | diverticulosis. Internal | | | | hemorrhoids. | | + + + + | Hospitalization History | ER visit for fall-injured | 07/2017 | | | back | | + + + +"
--- OUTSIDE RECORDS SUMMARY | ~2018-02-01 | XMS ---
Demographics + + + | Address | [address] | | | [place] [address] | + + + | Preferred Language | Unknown | + + + | Marital Status | Unknown | + + + | Amish Affiliation | Unknown | + + + | Race | Unknown | + + + | Ethnic Group | Unknown | + + + Author + + + | Author | [facility] | + + + | Organization | [facility] | + + + | Address | [address] | | | [place] [address] | + + + | Phone | | + + + Care Team Providers + + + + | Care First Assistant Manager Name | Role | Phone | + + + + Unavailable | Unavailable | + + + + PROBLEMS +---------+ + + +--------+ + + | Type | Condition | ICD9-CM | [id number] | Onset | Condition | SNOMED | | | | Code | Code | Dates | Status | Code | +---------+ + + +--------+ + + | Problem | Sleep | G47.30 | | | Active | 02429277 | | | apnea | | | | | | +---------+ + + +--------+ + + | 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 | | | Active | 05404515 | | | s without | | [...] | M48.10 | | | Active | 17497782 | | | idiopathic | | | [...] | | F71 | | Active | 15809242 | | | intellectu | | | | | | | | al | | | | | | | | disabiliti | | | | | | | | es | | | | | | +---------+ + + +--------+ + + | Problem | Morbid | | E66.01 | | Active | 346152829 | | | obesity | | | [...] | | K58.1 | | Active | 876682483 | | | bowel | | | | | | | | syndrome | | | | | | | | with | | | | | | | | constipati | | | | | | | | on | | | | | | +---------+ + + +--------+ + + | Problem | Congestive | I50.9 | | | Active | 77731826 | | | heart | | | | | | | | failure | | | | | | +---------+ + + +--------+ + + | Problem | Bone spur | M77.51 | | | Active | 187197314 | | | of right | | | | | | | | ankle | | | | | | +---------+ + + +--------+ + + | Problem | Decreased | H91.90 | | | Active | 851758467 | | | hearing | | | | | | +---------+ + + +--------+ + + | Problem | Cellulitis | L03.115 | | | Active | 7086169267 | | | of right | | | | | 2391268 | | | foot | | | | | | +---------+ + + +--------+ + + | Problem | Urge | | N39.41 | | Active | 58835478 | | | incontinen | | | | | | | | ce | | | | | | +---------+ + + +--------+ + + | Problem | Elevated | R74.8 | | | Active | 116475751 | | | alkaline | | | | | | | | phosphatas | | | | | | | | e level | | | | | | +---------+ + + +--------+ + + | Problem | Hyperlipid | | E78.5 | | Active | 25346601 | | | emia | | | | | | +---------+ + + +--------+ + + | Problem | Essential | | I10 | | Active | 76297528 | | | (primary) | | | | | | | | hypertensi | | | | | | | | on | | | | | | +---------+ + + +--------+ + + | Problem | GERD | | K21.9 | | Active | 965138513 | | | (gastroeso | | | | | | | | phageal | | | | | | | | reflux | | | | | | | | disease) | | | | | | +---------+ + + +--------+ + + | Problem | Screening | Z12.5 | | | Active | 208911983 | | | for | | | | | | | | prostate | | | | | | | | cancer | | | | | | +---------+ + + +--------+ + + | Problem | Status | Z93.0 | | | Active | 525129841 | | | post | | | [...] | | I10 | | Active | 44698158 | | | (hypertens | | | | | | | | ion) | | | | | | +---------+ + + +--------+ + + | Problem | Chronic | | N18.3 | | Active | 194874364 | | | kidney | | | | | | | | disease, | | | | | | | | stage 3 | | | | | | +---------+ + + +--------+ + + | Problem | Obstructiv | G47.33 | | | Active | 22763900 | | | e sleep | | | | | | | | apnea | | | | | | +---------+ + + +--------+ + + | Problem | Microalbum | R80.9 | | | Active | 183014143 | | | inuria | | | | | | +---------+ + + +--------+ + + | Problem | Bipolar | F31.9 | | | Active | 15084036 | | | disorder | | | | | | +---------+ + + +--------+ + + | Problem | Type 2 | E11.9 | | | Active | 58798069 | | | diabetes | | | | | | | | mellitus | | | | | | +---------+ + + +--------+ + + | Problem | Anxiety | F41.9 | | | Active | 342356478 | | | disorder | | | | | | +---------+ + + +--------+ + + | Problem | Conduct | | F91.9 | | Active | 285714513 | | | disorder, | | | | | | | | unspecifie | | | | | | | | d | | | | | | +---------+ + + +--------+ + + | Problem | Anemia, | D50.9 | | | Active | 86228226 | | | iron | | | [...] + + + | Follow Up | September 05, 2017 be here at 11:15 | | | Reason:null | + + + | Pending Test | X ray : Spine Thoracic 2 view | + + + VITAL SIGNS + + + + | Height | 70 in | 2017-08-10 | + + + + | Weight | 323.2 lbs | 2017-08-10 | + + + + | BMI | 46.37 kg/m2 | 2017-08-10 | + + + + | Temperature | 98.6 degrees Fahrenheit | 2017-08-10 | + + + + | Heart Rate | 90 /min | 2017-08-10 | + + + + | Blood pressure systolic | 128 mm Hg | 2017-08-10 | + + + + | Blood pressure diastolic | 93 mm Hg | 2017-08-10 | + + + + MEDICATIONS + [...] | Orally | 2 | | 03 Aug, | 30 Nov, | 30 | Active [...] Obstructive sleep apnea: | | | | Dr. Amrit Hobson, | | | | 04/01/17, 06/13/17, sleep [...]
--- OUTSIDE RECORDS SUMMARY | ~2018-02-01 | XMS ---
Demographics + + + | Address | [address] | | | [place] [address] | + + + | Preferred Language | Unknown | + + + | Marital Status | Unknown | + + + | Adventism Affiliation | Unknown | + + + | Race | Unknown | + + + | Ethnic Group | Unknown | + + + Author + + + | Author | [facility] | + + + | Organization | [facility] | + + + | Address | [address] | | | [place] [address] | + + + | Phone | | + + + Care Team Providers + + + + | Care Superintendent Car Construction Name | Role | Phone | + + + + Unavailable | Unavailable | + + + + PROBLEMS +---------+ + + +--------+ + + | Type | Condition | ICD9-CM | [id number] | Onset | Condition | SNOMED | | | | Code | Code | Dates | Status | Code | +---------+ + + +--------+ + + | Problem | Sleep | G47.30 | | | Active | 42846066 | | | apnea | | | | | | +---------+ + + +--------+ + + | 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 | | | Active | 98243351 | | | s without | | [...] | M48.10 | | | Active | 39179105 | | | idiopathic | | | [...] | | F71 | | Active | 50082390 | | | intellectu | | | | | | | | al | | | | | | | | disabiliti | | | | | | | | es | | | | | | +---------+ + + +--------+ + + | Problem | Morbid | | E66.01 | | Active | 580211648 | | | obesity | | | [...] | | K58.1 | | Active | 262792173 | | | bowel | | | | | | | | syndrome | | | | | | | | with | | | | | | | | constipati | | | | | | | | on | | | | | | +---------+ + + +--------+ + + | Problem | Congestive | I50.9 | | | Active | 31017516 | | | heart | | | | | | | | failure | | | | | | +---------+ + + +--------+ + + | Problem | Bone spur | M77.51 | | | Active | 884731770 | | | of right | | | | | | | | ankle | | | | | | +---------+ + + +--------+ + + | Problem | Decreased | H91.90 | | | Active | 604790226 | | | hearing | | | | | | +---------+ + + +--------+ + + | Problem | Cellulitis | L03.115 | | | Active | 8491607369 | | | of right | | | | | 2154684 | | | foot | | | | | | +---------+ + + +--------+ + + | Problem | Urge | | N39.41 | | Active | 65065713 | | | incontinen | | | | | | | | ce | | | | | | +---------+ + + +--------+ + + | Problem | Elevated | R74.8 | | | Active | 326660245 | | | alkaline | | | | | | | | phosphatas | | | | | | | | e level | | | | | | +---------+ + + +--------+ + + | Problem | Hyperlipid | | E78.5 | | Active | 29042915 | | | emia | | | | | | +---------+ + + +--------+ + + | Problem | Essential | | I10 | | Active | 96353254 | | | (primary) | | | | | | | | hypertensi | | | | | | | | on | | | | | | +---------+ + + +--------+ + + | Problem | GERD | | K21.9 | | Active | 168064812 | | | (gastroeso | | | | | | | | phageal | | | | | | | | reflux | | | | | | | | disease) | | | | | | +---------+ + + +--------+ + + | Problem | Screening | Z12.5 | | | Active | 293134187 | | | for | | | | | | | | prostate | | | | | | | | cancer | | | | | | +---------+ + + +--------+ + + | Problem | Status | Z93.0 | | | Active | 068794767 | | | post | | | [...] | | I10 | | Active | 06431473 | | | (hypertens | | | | | | | | ion) | | | | | | +---------+ + + +--------+ + + | Problem | Chronic | | N18.3 | | Active | 951325065 | | | kidney | | | | | | | | disease, | | | | | | | | stage 3 | | | | | | +---------+ + + +--------+ + + | Problem | Obstructiv | G47.33 | | | Active | 02014380 | | | e sleep | | | | | | | | apnea | | | | | | +---------+ + + +--------+ + + | Problem | Microalbum | R80.9 | | | Active | 377041528 | | | inuria | | | | | | +---------+ + + +--------+ + + | Problem | Bipolar | F31.9 | | | Active | 90861107 | | | disorder | | | | | | +---------+ + + +--------+ + + | Problem | Type 2 | E11.9 | | | Active | 56930397 | | | diabetes | | | | | | | | mellitus | | | | | | +---------+ + + +--------+ + + | Problem | Anxiety | F41.9 | | | Active | 699799246 | | | disorder | | | | | | +---------+ + + +--------+ + + | Problem | Conduct | | F91.9 | | Active | 700210005 | | | disorder, | | | | | | | | unspecifie | | | | | | | | d | | | | | | +---------+ + + +--------+ + + | Problem | Anemia, | D50.9 | | | Active | 97373623 | | | iron | | | [...] + + +--------+ + + ALLERGIES No Information SOCIAL HISTORY Never Assessed PLAN OF CARE VITAL SIGNS MEDICATIONS Unknown [...] 04/01/17, 06/13/17, sleep | | | | nirmala, Dr. Marcus | | + + + + | [...]
--- OUTSIDE RECORDS SUMMARY | ~2018-02-01 | XMS ---
Demographics + + + | Address | [address] | | | [place] [address] | + + + | Preferred Language | Unknown | + + + | Marital Status | Unknown | + + + | Scientologist Affiliation | Unknown | + + + | Race | Unknown | + + + | Ethnic Group | Unknown | + + + Author + + + | Author | [facility] | + + + | Organization | [facility] | + + + | Address | [address] | | | [place] [address] | + + + | Phone | | + + + Care Team Providers + + + + | Care Barrel Bridge Assembler Name | Role | Phone | + + + + Unavailable | Unavailable | + + + + PROBLEMS +---------+ + + +--------+ + + | Type | Condition | ICD9-CM | [id number] | Onset | Condition | SNOMED | | | | Code | Code | Dates | Status | Code | +---------+ + + +--------+ + + | Problem | Sleep | G47.30 | | | Active | 57495382 | | | apnea | | | | | | +---------+ + + +--------+ + + | 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 | | | Active | 16011528 | | | s without | | [...] | M48.10 | | | Active | 96539635 | | | idiopathic | | | [...] | | F71 | | Active | 31097693 | | | intellectu | | | | | | | | al | | | | | | | | disabiliti | | | | | | | | es | | | | | | +---------+ + + +--------+ + + | Problem | Morbid | | E66.01 | | Active | 356610313 | | | obesity | | | [...] | | K58.1 | | Active | 567519018 | | | bowel | | | | | | | | syndrome | | | | | | | | with | | | | | | | | constipati | | | | | | | | on | | | | | | +---------+ + + +--------+ + + | Problem | Congestive | I50.9 | | | Active | 75853885 | | | heart | | | | | | | | failure | | | | | | +---------+ + + +--------+ + + | Problem | Bone spur | M77.51 | | | Active | 398035967 | | | of right | | | | | | | | ankle | | | | | | +---------+ + + +--------+ + + | Problem | Decreased | H91.90 | | | Active | 723068487 | | | hearing | | | | | | +---------+ + + +--------+ + + | Problem | Cellulitis | L03.115 | | | Active | 0963318938 | | | of right | | | | | 2675393 | | | foot | | | | | | +---------+ + + +--------+ + + | Problem | Urge | | N39.41 | | Active | 49213429 | | | incontinen | | | | | | | | ce | | | | | | +---------+ + + +--------+ + + | Problem | Elevated | R74.8 | | | Active | 730583491 | | | alkaline | | | | | | | | phosphatas | | | | | | | | e level | | | | | | +---------+ + + +--------+ + + | Problem | Hyperlipid | | E78.5 | | Active | 29552699 | | | emia | | | | | | +---------+ + + +--------+ + + | Problem | Essential | | I10 | | Active | 72162152 | | | (primary) | | | | | | | | hypertensi | | | | | | | | on | | | | | | +---------+ + + +--------+ + + | Problem | GERD | | K21.9 | | Active | 104458312 | | | (gastroeso | | | | | | | | phageal | | | | | | | | reflux | | | | | | | | disease) | | | | | | +---------+ + + +--------+ + + | Problem | Screening | Z12.5 | | | Active | 173067034 | | | for | | | | | | | | prostate | | | | | | | | cancer | | | | | | +---------+ + + +--------+ + + | Problem | Status | Z93.0 | | | Active | 077836058 | | | post | | | [...] | | I10 | | Active | 97868883 | | | (hypertens | | | | | | | | ion) | | | | | | +---------+ + + +--------+ + + | Problem | Chronic | | N18.3 | | Active | 906871775 | | | kidney | | | | | | | | disease, | | | | | | | | stage 3 | | | | | | +---------+ + + +--------+ + + | Problem | Obstructiv | G47.33 | | | Active | 33932408 | | | e sleep | | | | | | | | apnea | | | | | | +---------+ + + +--------+ + + | Problem | Microalbum | R80.9 | | | Active | 425255903 | | | inuria | | | | | | +---------+ + + +--------+ + + | Problem | Bipolar | F31.9 | | | Active | 68995563 | | | disorder | | | | | | +---------+ + + +--------+ + + | Problem | Type 2 | E11.9 | | | Active | 42137883 | | | diabetes | | | | | | | | mellitus | | | | | | +---------+ + + +--------+ + + | Problem | Anxiety | F41.9 | | | Active | 608903707 | | | disorder | | | | | | +---------+ + + +--------+ + + | Problem | Conduct | | F91.9 | | Active | 512636303 | | | disorder, | | | | | | | | unspecifie | | | | | | | | d | | | | | | +---------+ + + +--------+ + + | Problem | Anemia, | D50.9 | | | Active | 36412864 | | | iron | | | [...]
[~2018-02-01 22:09] MED LIST changes: +NAPROSYN500 MG PO
== END 2018-02-02 03:56 | disposition home or self-care (01) ==
LOC: ED 22:09
PROC: BT40ZZZ Ultrasonography of Bladder (ICD-10-PCS; principal; 2018-02-01)
DX: T14.91XA Suicide attempt, initial encounter (principal); R39.198 Other difficulties with micturition; Z79.899 Other long term (current) drug therapy
CPT/HCPCS: 51798; 80053; 80176; 81001; 85025; 99284; G0480

== ENCOUNTER 2018-04-17 14:49 | Emergency (ER) | payer MEDICARE, OTHER ==
[~2018-04-17] VITALS: Ht 177.8 cm; Wt 147.4 kg
--- NOTE | 2018-04-18 07:01 | EKG ---
[facility] [address] [facility] [place] [address] Signed Normal sinus rhythm Left axis deviation Prolonged QT Abnormal ECG No previous ECGs available Confirmed by CELSA BATES MD ([id number]) on 04/18/2018 7:01:25 AM Electronically Signed By: CELSA BATES MD 04/18/18 0701 PATIENT NAME: WALDE[place] Electrocardiogram DATE OF : 61 PHYSICIAN: CELSA BATES MD REPORT #: [id number] REPORT IS CONFIDENTIAL AND NOT TO BE RELEASED WITHOUT AUTHORIZATION
== END 2018-04-17 18:06 | disposition home or self-care (01) ==
LOC: ED 14:49
PROC: 09QKXZZ Repair Nasal Mucosa and Soft Tissue, External Approach (ICD-10-PCS; principal; 2018-04-17)
DX: S02.2XXA Fracture of nasal bones, initial encounter for closed fracture (principal); S01.21XA Laceration without foreign body of nose, initial encounter; F31.9 Bipolar disorder, unspecified; Z79.899 Other long term (current) drug therapy; Z79.84 Long term (current) use of oral hypoglycemic drugs; W19.XXXA Unspecified fall, initial encounter
CPT/HCPCS: 12011; 36415; 70450; 70486; 72125; 80053; 84484; 85025; 93005; 93010; 99284